=== PATIENT | female | born 1950 | race Caucasian/White ===

== ENCOUNTER 2021-07-04 08:27 | Day surgery (SDC) | payer MEDICARE, OTHER ==
[~2021-07-04] VITALS: Ht 167.6 cm; Wt 58.0 kg
[~2021-07-04 08:27] MED LIST: ABAC300; Aspir 8181 MG PO; ESTPRO5 PO; FAMO20 PO; LISI5 PO; MONT10T PO; MONT4 PO; NASACORT10.8 ML INH; OMEPRAZOLE MAGN20 MG PO; Prinivil10 MG PO
--- NOTE | 2021-07-04 10:10 | NUR ---
07/04/21 1009 FERNANDO CRUZ LOCAL INJECTION COMPLETED INTO LHAND BY LUÍS AT BEDSIDE
== END 2021-07-04 12:08 | disposition home or self-care (01) ==
LOC: ORSCSDS 08:27
PROVIDERS: Orthopaedic Surgery
PROC: 0JNK0ZZ Release Left Hand Subcutaneous Tissue and Fascia, Open Approach (ICD-10-PCS; principal; 2021-07-04 09:30)
PROC: 0LN80ZZ Release Left Hand Tendon, Open Approach (ICD-10-PCS; principal; 2021-07-04 09:30)
DX: M72.0 Palmar fascial fibromatosis [Dupuytren] (principal); I10 Essential (primary) hypertension; K21.9 Gastro-esophageal reflux disease without esophagitis; Z79.899 Other long term (current) drug therapy; Z79.82 Long term (current) use of aspirin
CPT/HCPCS: 88304; A9270; J0690; J1100; J2250; J2405; J2704; J3010; J7120

== ENCOUNTER 2023-07-09 09:36 | Day surgery (SDC) | payer MEDICARE, OTHER ==
[~2023-07-09] VITALS: Ht 167.6 cm; Wt 57.2 kg
[2023-07-09 12:01] VITALS: BP 115/80
== END 2023-07-09 11:48 | disposition home or self-care (01) ==
LOC: ORSCSDS 09:36
PROVIDERS: Internal Medicine Gastroenterology
PROC: 0DB68ZX Excision of Stomach, Via Natural or Artificial Opening Endoscopic, Diagnostic (ICD-10-PCS; principal; 2023-07-09 11:00)
PROC: 0DB58ZX Excision of Esophagus, Via Natural or Artificial Opening Endoscopic, Diagnostic (ICD-10-PCS; principal; 2023-07-09 11:00)
DX: K22.70 Barrett's esophagus without dysplasia (principal); Z79.82 Long term (current) use of aspirin; Z79.899 Other long term (current) drug therapy
CPT/HCPCS: 88305; 88342; J2704